=== PATIENT | male | born 2005 | race Two or more races ===

== ENCOUNTER 2024-04-22 19:23 | Emergency (ER) | payer MEDICAID, OTHER ==
[~2024-04-22] VITALS: Ht 200.7 cm; Wt 70.0 kg
[2024-04-22 20:33] VITALS: BP 112/75; PULSE 72; RESP 20; TEMP 98.7; O2SAT 99
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
== END 2024-04-22 21:04 | disposition home or self-care (01) ==
LOC: ER 19:23
DX: S80.12XA Contusion of left lower leg, initial encounter (principal); S70.12XA Contusion of left thigh, initial encounter; V49.9XXA Car occupant (driver) (passenger) injured in unspecified traffic accident, initial encounter; Y93.89 Activity, other specified; Y92.410 Unspecified street and highway as the place of occurrence of the external cause; Y99.8 Other external cause status

== ENCOUNTER 2024-08-28 04:16 | Emergency (ER) | payer SELFPAY ==
[~2024-08-28] VITALS: Ht 172.7 cm; Wt 77.7 kg
[2024-08-28 04:30] VITALS: BP 133/75; PULSE 84; RESP 16; TEMP 97.9; O2SAT 99
--- NOTE | 2024-08-28 06:14 | DVH ---
CHEST RADIOGRAPH Indication: Syncope Technique: Single frontal view of the chest was obtained COMPARISON: None FINDINGS: Lines and Tubes: None Lungs: Clear Pleura: No effusion. No pneumothorax. Cardiomediastinal contours: Unremarkable Bones: Unremarkable IMPRESSION: No acute disease.
[2024-08-28 06:27] LABS: Basophils # (auto) 0.1 10 ^3/uL (0-0.2); Basophils % (auto) 0.8 % (0.0-2.0); Eosinophils # (auto) 0.2 10 ^3/uL (0-0.8); Hematocrit 47.8 % (41.0-53.0); Hemoglobin 16.8 g/dL (13.5-17.5); Lymphocytes % (auto) 13.9 % (10.0-50.0); Mean Corpuscular Hemoglobin 31.8 pg (28.0-32.0); Mean Corpuscular Hgb Conc. 35.1 g/dL (32.0-36.0); Mean Corpuscular Volume 90.5 fL (80.0-100.0); Monocytes % (auto) 7.2 % (0.0-12.0); Neutrophils # (auto) 11.3 10 ^3/uL (1.6-8.6); Neutrophils % (auto) 77.1 % (37.0-80.0); Nucleated Red Blood Cells % 0.1 %; Platelet Count (auto) 256 10^3/uL (140-450); Red Blood Cells 5.29 10^6/uL (4.5-5.90); Red Cell Distribution Width 13.3 % (11.8-14.3); White Blood Cell 14.6 10^3/uL (4.4-10.8)
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
[2024-08-28 06:51] LABS: Alkaline Phosphatase 80 U/L (46-116); Anion Gap 9 (5-15); Aspartate Aminotransferase 30 U/L (13-40); BUN/Creatinine Ratio 7.4 (10.0-20.0); Calcium 10.3 mg/dL (8.7-10.4); Carbon Dioxide 27 mmol/L (20-31); Chloride 102 mmol/L (98-107); Potassium 3.8 mmol/L (3.5-5.1); Sodium 138 mmol/L (136-145)
[2024-08-28 06:52] LABS: Bilirubin, Total 0.6 mg/dL (0.2-1.0)
[2024-08-28 07:01] LABS: Alanine Aminotransferase 101 U/L (7-40); Albumin 5.4 g/dL (3.2-4.8); Blood Urea Nitrogen 7 mg/dL (9-23); Glucose 106 mg/dL (74-106); Total Protein 8.3 g/dL (5.7-8.2)
[2024-08-28 08:52] LABS: Urine Bacteria None Seen /hpf (None Seen)
[2024-08-28 09:18] LABS: Cannabinoid Screen, Urine Pos (NEGATIVE); Urine Blood Negative /uL (Negative); Urine Clarity Clear (Clear); Urine Color Light-Yellow (Yellow); Urine Hyaline Cast FEW /lpf (0 - 2); Urine Mucus FEW (None Seen); Urine Protein, UAD 1+ (Negative); Urine Specific Gravity 1.017 (1.001-1.035); Urine Squamous Epithelial Cell None Seen /hpf (<5); Urine Urobilinogen Normal (Negative); Urine WBC 1 /HPF (0-3); Urine pH 6.5 (5.0-9.0)
[2024-08-28 09:22] LABS: Amphetamine Screen, Urine Neg (NEGATIVE); Barbiturate Scree,Urine Neg (NEGATIVE); Benzodiazephine Screen, Urine Neg (NEGATIVE); Cocaine Screen, Urine Pos (NEGATIVE); Opiate Scree,Urine Neg (NEGATIVE); Phencyclidine Screen, Urine Neg (NEGATIVE)
== END 2024-08-28 08:40 | disposition left against medical advice (07) ==
LOC: ER 04:16
DX: G93.41 Metabolic encephalopathy (principal); R55 Syncope and collapse; F17.210 Nicotine dependence, cigarettes, uncomplicated; F12.90 Cannabis use, unspecified, uncomplicated; Z79.899 Other long term (current) drug therapy
CPT/HCPCS: 36415; 71045; 80053; 80307; 81001; 84484; 85025